=== PATIENT | male | born 1955 | race Caucasian/White ===

== ENCOUNTER 2022-09-15 13:55 | Emergency (ER) | payer MEDICARE, OTHER ==
[2022-09-15 14:30] VITALS: TEMP 98.1
[2022-09-15] MEDS ORDERED: MECLIZINE 12.5 MG TAB PO STA (15:28)
[2022-09-15] MEDS ORDERED: SODIUM CHLORIDE 0.9% 500 ML 500 ML IV STA (15:28)
--- NOTE | 2022-09-15 16:35 | ED ---
Dizziness HPI - General Chief Complaint: Dizziness Stated Complaint: dizziness Time Seen by Provider: 09/15/22 15:22 Source: patient Mode of arrival: ambulatory Limitations: no limitations - History of Present Illness Initial Comments: Patient is a 67-year-old male presenting with chief complaint of dizziness. Patient states that yesterday when he woke up and turned his head the room started spinning. Patient states that today's symptoms have improved but are still there. Patient states that symptoms feel better when he keeps his head still. He admits to some nausea with no vomiting. No chest pain or difficulty breathing. No abdominal pain. No headache, vision or hearing changes, numbness, tingling, weakness. - Related Data Home Medications Medication Instructions Recorded Confirmed Atorvastatin [Lipitor] 40 mg PO HS 09/15/22 09/15/22 Previous Rx's Medication Instructions Recorded Meclizine [Antivert] 25 mg PO BID PRN #20 tab 09/15/22 Allergies Allergy/AdvReac Type Severity Reaction Status Date / Time No Known Allergies Allergy Verified 09/15/22 15:43 Review of Systems ROS Statement: Those systems with pertinent positive or pertinent negative responses have been documented in the HPI. ROS Other: All systems not noted in ROS Statement are negative. Past Medical History Past Medical History: No Reported History History of Any Multi-Drug Resistant Organisms: None Reported Additional Past Surgical History / Comment(s): urethroplasty Smoking Status: Vaper Past Alcohol Use History: None Reported Past Drug Use History: Marijuana General Exam Limitations: no limitations General appearance: alert, in no apparent distress Head exam: Present: atraumatic, normocephalic, normal inspection Eye exam: Present: normal appearance, PERRL, EOMI. Absent: scleral icterus, conjunctival injection, periorbital swelling Pupils: Present: normal accommodation Neck exam: Present: normal inspection Respiratory exam: Present: normal lung sounds bilaterally. Absent: respiratory distress, wheezes, rales, rhonchi, stridor Cardiovascular Exam: Present: regular rate, normal rhythm, normal heart sounds. Absent: systolic murmur, diastolic murmur, rubs, gallop, clicks Neurological exam: Present: alert, oriented X3, CN II-XII intact Psychiatric exam: Present: normal affect, normal mood Skin exam: Present: warm, dry, intact, normal color. Absent: rash Course Vital Signs 0409/15/22 09/15/22 14:26 16:30 17:00 Temperature 98.1 F Pulse Rate 61 61 Pulse Rate [ Standing] Pulse Rate [ Supine] Respiratory 18 18 Rate Blood Pressure 158/77 156/86 Blood Pressure [Right Arm Supine] Blood Pressure [Sitting] O2 Sat by Pulse 96 97 94 L Oximetry 09/15/22 09/15/22 09/15/22 17:30 18:00 18:01 Temperature Pulse Rate 64 65 Pulse Rate [ Standing] Pulse Rate [ 72 70 Supine] Respiratory 17 13 Rate Blood Pressure 141/83 137/81 Blood Pressure 144/86 154/101 [Right Arm Supine] Blood Pressure [Sitting] O2 Sat by Pulse 95 96 Oximetry 09/15/22 18:02 Temperature Pulse Rate Pulse Rate [ 69 Standing] Pulse Rate [ Supine] Respiratory Rate Blood Pressure Blood Pressure [Right Arm Supine] Blood Pressure 137/83 [Sitting] O2 Sat by Pulse Oximetry EKG Findings - EKG Comments: EKG Findings:: Sinus rhythm ventricular rate 63. NJ interval 197. QRS 114. QT 407. QTC 414. No ischemic changes. Medical Decision Making - Medical Decision Making Was pt. sent in by a medical professional or institution (, PA, ELECTRON BEAM WELDER SETTER, urgent care, hospital, or alf...) When possible be specific @ -No Did you speak to anyone other than the patient for history (EMS, parent, family, police, friend...)? What history was obtained from this source @ -No Did you review nursing and triage notes (agree or disagree)? Why? @ -I reviewed and agree with nursing and triage notes Were old charts reviewed (outside hosp., previous admission, EMS record, old EKG, old radiological studies, urgent care reports/EKG's, alf records)? Report findings @ -No old charts were reviewed Differential Diagnosis (chest pain, altered mental status, abdominal pain women, abdominal pain men, vaginal bleeding, weakness, fever, dyspnea, syncope, headache, dizziness, GI bleed, back pain, seizure, CVA, palpatations, mental health, musculoskeletal)? @ -MDM Differential Dizziness: Benign paroxysmal positional Vertigo, Menieres disease, otitis media, acoustic neuroma, vertebrobasilar insufficiency, cerebellar stroke, encephalitis, hypovolemic, arrhythmia, coronary artery syndrome, anemia this is not meant to be an all-inclusive list EKG interpreted by me (3pts min.). @ -As above X-rays interpreted by me (1pt min.). @ -Chest x-ray showed no acute process, COPD changes noted CT interpreted by me (1pt min.). @ -None done U/S interpreted by me (1pt. min.). @ -None done What testing was considered but not performed or refused? (CT, X-rays, U/S, labs)? Why? @ -None What meds were considered but not given or refused? Why? @ -None Did you discuss the management of the patient with other professionals (professionals i.e. DrRosalba, PA, ELECTRON BEAM WELDER SETTER, lab, RT, psych nurse, social media coordinator, color depositing machine tender, teacher, chief security and safety officer, case management specialist)? Give summary @ -No Was smoking cessation discussed for >3mins.? @ -No Was critical care preformed (if so, how long)? @ -No Were there social determinants of health that impacted care today? How? (Homelessness, low income, unemployed, alcoholism, drug addiction, transportation, low edu. Level, literacy, decrease access to med. care, longterm, rehab)? @ -No Was there de-escalation of care discussed even if they declined (Discuss DNR or withdrawal of care, Hospice)? DNR status @ -No What co-morbidities impacted this encounter? (DM, HTN, Smoking, COPD, CAD, Cancer, CVA, ARF, Chemo, Hep., AIDS, mental health diagnosis, sleep apnea, morbid obesity)? @ -None Was patient admitted / discharged? Hospital course, mention meds given and route, prescriptions, significant lab abnormalities, going to OR and other pertinent info. @ -Patient is a 67-year-old male presenting with chief complaint of dizziness. Symptoms started yesterday, dizziness is worse with moving his head and improves when holding still. On physical examination there are no focal neurological deficits. Heart and lungs are clear to auscultation, denies chest pain or difficulty breathing. Patient is given meclizine. Lab work is essentially unremarkable. EKG shows no acute process. Chest x-rays negative. Patient reports some improvement after meclizine. He is educated on these findings and on supportive treatment with BPPV. He is provided with prescription for meclizine. Follow-up with PCP. Report back to ER with any new or worsening symptoms. Discussed return parameters and answered all questions. Patient conveyed verbal understanding and agreed to the plan. I discussed this case in detail with my attending Dr. Mckeon Undiagnosed new problem with uncertain prognosis? @ -No Drug Therapy requiring intensive monitoring for toxicity (Heparin, Nitro, Insulin, Cardizem)? @ -No Were any procedures done? @ -No Diagnosis/symptom? @ -BPPV Acute, or Chronic, or Acute on Chronic? @ -Acute Uncomplicated (without systemic symptoms) or Complicated (systemic symptoms)? @ -Uncomplicated Side effects of treatment? @ -No Exacerbation, Progression, or Severe Exacerbation? @ -No Poses a threat to life or bodily function? How? (Chest pain, [place], [place], pneumonia, PE, COPD, DKA, ARF, appy, cholecystitis, CVA, Diverticulitis, Homicidal, Suicidal, threat to staff... and all critical care pts) @ -No - Lab Data Result diagrams: 09/15/22 16:32 09/15/22 16:32 Lab Results 09/15/22 09/15/22 09/15/22 Range/Units 16:32 16:32 16:32 WBC 8.9 (3.8-10.6) k/uL RBC 5.44 (4.30-5.90) m/uL Hgb 16.7 (13.0-17.5) gm/dL Hct 47.6 (39.0-53.0) % MCV 87.4 (80.0-100.0) fL MCH 30.8 (25.0-35.0) pg MCHC 35.2 (31.0-37.0) g/dL RDW 12.2 (11.5-15.5) % Plt Count 116 L (150-450) k/uL MPV 8.5 Neutrophils % 88 % Lymphocytes % 6 % Monocytes % 4 % Eosinophils % 1 % Basophils % 0 % Neutrophils # 7.8 H (1.3-7.7) k/uL Lymphocytes # 0.5 L (1.0-4.8) k/uL Monocytes # 0.4 (0-1.0) k/uL Eosinophils # 0.1 (0-0.7) k/uL Basophils # 0.0 (0-0.2) k/uL PT 10.4 (9.0-12.0) sec INR 1.0 (<1.2) Sodium 137 (137-145) mmol/L Potassium 4.0 (3.5-5.1) mmol/L Chloride 104 (98-107) mmol/L Carbon Dioxide 24 (22-30) mmol/L Anion Gap 9 mmol/L BUN 16 (9-20) mg/dL Creatinine 0.87 (0.66-1.25) mg/dL Est GFR (CKD-EPI)AfAm >90 (>60 ml/min/1.73 sqM) Est GFR (CKD-EPI)NonAf >90 (>60 ml/min/1.73 sqM) Glucose 104 H (74-99) mg/dL Plasma Lactic Acid Vishal (0.7-2.0) mmol/L Calcium 9.3 (8.4-10.2) mg/dL Total Bilirubin 1.8 H (0.2-1.3) mg/dL AST 29 (17-59) U/L ALT 32 (4-49) U/L Alkaline Phosphatase 64 (38-126) U/L Troponin I (0.000-0.034) ng/mL Total Protein 7.4 (6.3-8.2) g/dL Albumin 4.4 (3.5-5.0) g/dL 09/15/22 09/15/22 Range/Units 16:32 16:32 WBC (3.8-10.6) k/uL RBC (4.30-5.90) m/uL Hgb (13.0-17.5) gm/dL Hct (39.0-53.0) % MCV (80.0-100.0) fL MCH (25.0-35.0) pg MCHC (31.0-37.0) g/dL RDW (11.5-15.5) % Plt Count (150-450) k/uL MPV Neutrophils % % Lymphocytes % % Monocytes % % Eosinophils % % Basophils % % Neutrophils # (1.3-7.7) k/uL Lymphocytes # (1.0-4.8) k/uL Monocytes # (0-1.0) k/uL Eosinophils # (0-0.7) k/uL Basophils # (0-0.2) k/uL PT (9.0-12.0) sec INR (<1.2) Sodium (137-145) mmol/L Potassium (3.5-5.1) mmol/L Chloride (98-107) mmol/L Carbon Dioxide (22-30) mmol/L Anion Gap mmol/L BUN (9-20) mg/dL Creatinine (0.66-1.25) mg/dL Est GFR (CKD-EPI)AfAm (>60 ml/min/1.73 sqM) Est GFR (CKD-EPI)NonAf (>60 ml/min/1.73 sqM) Glucose (74-99) mg/dL Plasma Lactic Acid Vishal 1.3 (0.7-2.0) mmol/L Calcium (8.4-10.2) mg/dL Total Bilirubin (0.2-1.3) mg/dL AST (17-59) U/L ALT (4-49) U/L Alkaline Phosphatase (38-126) U/L Troponin I <0.012 (0.000-0.034) ng/mL Total Protein (6.3-8.2) g/dL Albumin (3.5-5.0) g/dL Disposition Clinical Impression: BPPV (benign paroxysmal positional vertigo) Disposition: HOME SELF-CARE Condition: Good Instructions (If sedation given, give patient instructions): Dizziness (ED) Additional Instructions: Follow-up with PCP. Report back to ER with any new or worsening symptoms. Prescriptions: Meclizine [Antivert] 25 mg PO BID PRN #20 tab PRN Reason: Vertigo Is patient prescribed a controlled substance at d/c from ED?: No Referrals: None,Stated [Primary Care Provider] - 1-2 days Time of Disposition: 18:13
[2022-09-15 16:46] LABS: Basophils % (A) 0 %; Eosinophils # (A) 0.1 k/uL (0-0.7); Eosinophils % (A) 1 %; HCT 47.6 % (39.0-53.0); HGB 16.7 gm/dL (13.0-17.5); Lymphocytes # (A) 0.5 k/uL (1.0-4.8); Lymphocytes % (A) 6 %; MCH 30.8 pg (25.0-35.0); MCHC 35.2 g/dL (31.0-37.0); MCV 87.4 fL (80.0-100.0); Mean Platelet Volume 8.5; Monocytes # (A) 0.4 k/uL (0-1.0); Monocytes % (A) 4 %; Neutrophils # (A) 7.8 k/uL (1.3-7.7); Neutrophils % (A) 88 %; Platelet Count 116 k/uL (150-450); RBC 5.44 m/uL (4.30-5.90); RDW 12.2 % (11.5-15.5); WBC 8.9 k/uL (3.8-10.6)
[2022-09-15 17:03] LABS: Prothrombin Time 10.4 sec (9.0-12.0)
[2022-09-15 17:13] LABS: ALT 32 U/L (4-49); AST 29 U/L (17-59); African American GFR (CKD) >90 (>60 ml/min/1.73 sqM); Albumin 4.4 g/dL (3.5-5.0); Alkaline Phosphatase 64 U/L (38-126); Anion Gap 9 mmol/L; Blood Urea Nitrogen 16 mg/dL (9-20); Calcium 9.3 mg/dL (8.4-10.2); Carbon Dioxide 24 mmol/L (22-30); Chloride 104 mmol/L (98-107); Glucose 104 mg/dL (74-99); Non-African American GFR(CKD) >90 (>60 ml/min/1.73 sqM); Sodium 137 mmol/L (137-145); Total Bilirubin 1.8 mg/dL (0.2-1.3); Total Protein 7.4 g/dL (6.3-8.2)
--- NOTE | 2022-09-15 17:54 | XR ---
EXAMINATION TYPE: XR chest 2V DATE OF EXAM: 09/15/2022 COMPARISON: None INDICATION: Dizziness nausea vomiting TECHNIQUE: Frontal and lateral views of the chest are obtained. FINDINGS: The heart size is normal. The pulmonary vasculature is normal. The lungs are clear. There is a focal eventration of the posterior right diaphragm. Hyperinflation f lattening diaphragms compatible with COPD is present. IMPRESSION: 1. No acute pulmonary process. 2. COPD
[2022-09-15 18:10] VITALS: RESP 13
[2022-09-15 18:42] VITALS: BP 137/83; PULSE 69
== END 2022-09-15 18:52 | disposition home or self-care (01) ==
LOC: EC 13:55
DX: H81.10 Benign paroxysmal vertigo, unspecified ear (principal); J44.9 Chronic obstructive pulmonary disease, unspecified; F17.290 Nicotine dependence, other tobacco product, uncomplicated; F12.90 Cannabis use, unspecified, uncomplicated
CPT/HCPCS: 36415; 71046; 80053; 83605; 84484; 85025; 85610; 93005; 96360; 99285

== ENCOUNTER 2023-03-04 17:58 | Inpatient (IN) | payer MEDICARE, OTHER ==
[2023-03-04] MEDS ORDERED: MORPHINE SULFATE 4 MG/ML SYRINGE IV STA (19:05)
--- NOTE | 2023-03-04 19:09 | ED ---
Abdominal Pain HPI - General Chief Complaint: Abdominal Pain Stated Complaint: abd pain Time Seen by Provider: 03/04/23 18:19 Source: EMS Mode of arrival: EMS Limitations: no limitations - History of Present Illness Initial Comments: This patient is a 67-year-old man who presents evaluation of abdominal pain. He states that it started early this morning and was present in the epigastric area. Over the course the day it has migrated down to the right lower quadrant. He describes it as a constant painful pressure. He has had nausea associated and he did induce vomiting couple of times to see if that would help but it didn't really relieve the symptoms. No hematemesis or coffee-ground material. He did have bowel movement earlier today that he described as normal. No change in urination. No groin or testicle pain. No symptoms into the legs or up to the chest. MD Complaint: abdominal pain -: hour(s) Location: epigastric Radiation: none Migration to: RLQ Severity: moderate Quality: other (Pressure) Consistency: constant Improves With: nothing Worsens With: nothing Associated Symptoms: nausea - Related Data Home Medications Medication Instructions Recorded Confirmed Atorvastatin [Lipitor] 40 mg PO HS 09/15/22 03/04/23 Previous Rx's Medication Instructions Recorded Acetaminophen Tab [Tylenol Tab] 650 mg PO Q4H PRN #30 tablet 03/06/23 Ibuprofen [Motrin] 600 mg PO Q8HR PRN #30 tab 03/06/23 Levofloxacin [Levaquin] 500 mg PO DAILY 10 Days #10 tab 03/06/23 metroNIDAZOLE [Flagyl] 500 mg PO TID 10 Days #30 tab 03/06/23 oxyCODONE HCL [OxyIR] 5 mg PO Q6H PRN 3 Days #12 tab 03/06/23 oxyCODONE HCL [OxyIR] 5 mg PO Q6H PRN 3 Days #8 tab 03/08/23 Apixaban [Eliquis] 0 mg PO DIRECTED 30 Days #74 03/23/23 tablet Allergies Allergy/AdvReac Type Severity Reaction Status Date / Time No Known Allergies Allergy Verified 03/23/23 11:57 Review of Systems ROS Statement: Those systems with pertinent positive or pertinent negative responses have been documented in the HPI. ROS Other: All systems not noted in ROS Statement are negative. Constitutional: Reports: fever Respiratory: Denies: cough, dyspnea Cardiovascular: Denies: chest pain, palpitations, edema Gastrointestinal: Reports: abdominal pain, nausea, vomiting. Denies: diarrhea, constipation, hematemesis, melena, hematochezia Genitourinary: Denies: dysuria, hematuria, testicular pain Musculoskeletal: Denies: back pain Skin: Denies: rash Neurological: Denies: headache, weakness, numbness Past Medical History Past Medical History: No Reported History History of Any Multi-Drug Resistant Organisms: None Reported Additional Past Surgical History / Comment(s): urethroplasty Smoking Status: Vaper Past Alcohol Use History: None Reported Past Drug Use History: Marijuana General Exam Limitations: no limitations General appearance: alert, in no apparent distress Head exam: Present: atraumatic, normocephalic Eye exam: Present: normal appearance. Absent: scleral icterus, conjunctival injection ENT exam: Present: mucous membranes dry Neck exam: Present: normal inspection Respiratory exam: Present: normal lung sounds bilaterally. Absent: respiratory distress, wheezes, rales, rhonchi, stridor, accessory muscle use Cardiovascular Exam: Present: regular rate, normal rhythm, normal heart sounds. Absent: systolic murmur, diastolic murmur, rubs, gallop GI/Abdominal exam: Present: soft, tenderness (Lower quadrant), guarding, hypoactive bowel sounds. Absent: distended, rebound, rigid, mass, pulsatile mass, hernia Extremities exam: Present: normal inspection, normal capillary refill. Absent: pedal edema, calf tenderness Back exam: Present: normal inspection. Absent: CVA tenderness (R), CVA tenderness (L) Neurological exam: Present: alert Skin exam: Present: warm, dry, intact, normal color. Absent: rash Course Vital Signs 03/04/23 03/04/23 03/04/23 18:14 19:34 20:35 Temperature 99.9 F H 99.6 F Pulse Rate 81 91 87 Respiratory 18 18 16 Rate Blood Pressure 180/93 177/94 163/98 O2 Sat by Pulse 95 95 94 L Oximetry 03/04/23 20:57 Temperature Pulse Rate Respiratory Rate Blood Pressure 166/93 O2 Sat by Pulse Oximetry Medical Decision Making - Medical Decision Making The patient had computed tomography scan of the abdomen and pelvis which I int erpreted as showing probable acute cholecystitis. No free air or obstruction. Was pt. sent in by a medical professional or institution (Dr., PA, FIELD SERVICE REP, urgent care, hospital, or [facility]...) When possible be specific @ -[No] Did you speak to anyone other than the patient for history (EMS, parent, family, police, friend...)? What history was obtained from this source @ -[No] Did you review nursing and triage notes (agree or disagree)? Why? @ -[I reviewed and agree with nursing and triage notes] Were old charts reviewed (outside hosp., previous admission, EMS record, old EKG, old radiological studies, urgent care reports/EKG's, [facility] records)? Report findings @ -[No old charts were reviewed] Differential Diagnosis (chest pain, altered mental status, abdominal pain women, abdominal pain men, vaginal bleeding, weakness, fever, dyspnea, syncope, headache, dizziness, GI bleed, back pain, seizure, CVA, palpatations, mental health, musculoskeletal)? @ -[Differential Abdominal Pain Men: Appendicitis, cholecystitis, diverticulosis, ischemic bowel, pancreatitis, hepatitis, UTI, gastroenteritis, AAA, incarcerated hernia, bowel obstruction, constipation, inflammatory bowel, hepatitis, peptic ulcer disease, splenic infarction, perforated viscus, testicular torsion, this is not meant to be an all-inclusive list EKG interpreted by me (3pts min.). @ -[ X-rays interpreted by me (1pt min.). @ -[None done] CT interpreted by me (1pt min.). @ -[I interpreted as above U/S interpreted by me (1pt. min.). @ -[None done] What testing was considered but not performed or refused? (CT, X-rays, U/S, labs)? Why? @ -[None] What meds were considered but not given or refused? Why? @ -[None] Did you discuss the management of the patient with other professionals (professionals i.e. REED Montejo, FIELD SERVICE REP, lab, RT, psych nurse, director of social services, sales contract administrator, teacher, parachute/combatant diver officer, case checker)? Give summary @ -[Case discussed with the on-call surgeon who will admit the patient, probably to take to the OR in the morning Was smoking cessation discussed for >3mins.? @ -[No] Was critical care preformed (if so, how long)? @ -[No] Were there social determinants of health that impacted care today? How? (Homelessness, low income, unemployed, alcoholism, drug addiction, transportation, low edu. Level, literacy, decrease access to med. care, fdc, rehab)? @ -[No] Was there de-escalation of care discussed even if they declined (Discuss DNR or withdrawal of care, Hospice)? DNR status @ -[No] What co-morbidities impacted this encounter? (DM, HTN, Smoking, COPD, CAD, Cancer, CVA, ARF, Chemo, Hep., AIDS, mental health diagnosis, sleep apnea, morbid obesity)? @ -[None] Was patient admitted / discharged? Hospital course, mention meds given and route, prescriptions, significant lab abnormalities, going to OR and other pertinent info. @ -[The patient is admitted. Patient is nothing by mouth and antibiotics are started with anticipated surgery. Patient to have symptomatic control with IV medication as well and IV fluid while nothing by mouth Undiagnosed new problem with uncertain prognosis? @ -[No] Drug Therapy requiring intensive monitoring for toxicity (Heparin, Nitro, Insulin, Cardizem)? @ -[No] Were any procedures done? @ -[No] Diagnosis/symptom? @ -[Acute abdominal pain Acute cholecystitis Acute, or Chronic, or Acute on Chronic? @ -[Acute Uncomplicated (without systemic symptoms) or Complicated (systemic symptoms)? @ -[Uncomplicated Side effects of treatment? @ -[No] Exacerbation, Progression, or Severe Exacerbation? @ -[No] Poses a threat to life or bodily function? How? (Chest pain, [place], [place], pneumonia, PE, COPD, DKA, ARF, appy, cholecystitis, CVA, Diverticulitis, Homicidal, S uicidal, threat to staff... and all critical care pts) @ -[Yes, untreated cholecystitis may progress to worsening infection/sepsis - Lab Data Result diagrams: 03/08/23 07:14 03/08/23 07:14 Lab Results 03/04/23 03/04/23 03/04/23 Range/Units 19:10 19:10 19:10 WBC 18.8 H (3.8-10.6) k/uL RBC 5.28 (4.30-5.90) m/uL Hgb 16.4 (13.0-17.5) gm/dL Hct 47.4 (39.0-53.0) % MCV 89.7 (80.0-100.0) fL MCH 31.0 (25.0-35.0) pg MCHC 34.6 (31.0-37.0) g/dL RDW 12.1 (11.5-15.5) % Plt Count 129 L (150-450) k/uL MPV 8.7 Neutrophils % 93 % Lymphocytes % 2 % Monocytes % 5 % Eosinophils % 1 % Basophils % 0 % Neutrophils # 17.5 H (1.3-7.7) k/uL Lymphocytes # 0.3 L (1.0-4.8) k/uL Monocytes # 0.9 (0-1.0) k/uL Eosinophils # 0.1 (0-0.7) k/uL Basophils # 0.0 (0-0.2) k/uL Sodium 136 L (137-145) mmol/L Potassium 3.9 (3.5-5.1) mmol/L Chloride 100 (98-107) mmol/L Carbon Dioxide 21 L (22-30) mmol/L Anion Gap 15 mmol/L BUN 18 (9-20) mg/dL Creatinine 0.73 (0.66-1.25) mg/dL Est GFR (CKD-EPI)AfAm >90 (>60 ml/min/1.73 sqM) Est GFR (CKD-EPI)NonAf >90 (>60 ml/min/1.73 sqM) Glucose 150 H (74-99) mg/dL Calcium 9.1 (8.4-10.2) mg/dL Total Bilirubin 1.9 H (0.2-1.3) mg/dL AST 35 (17-59) U/L ALT 34 (4-49) U/L Alkaline Phosphatase 50 (38-126) U/L C-Reactive Protein 3.3 H (<1.0) mg/dL Total Protein 7.0 (6.3-8.2) g/dL Albumin 4.2 (3.5-5.0) g/dL Amylase 40 (30-110) U/L Lipase 80 (23-300) U/L Urine Color Yellow Urine Appearance Cloudy (Clear) Urine pH 5.5 (5.0-8.0) Ur Specific Gomer 1.024 (1.001-1.035) Urine Protein Trace H (Negative) Urine Glucose (UA) Negative (Negative) Urine Ketones Negative (Negative) Urine Blood Trace H (Negative) Urine Nitrite Positive (Negative) Urine Bilirubin Negative (Negative) Urine Urobilinogen <2.0 (<2.0) mg/dL Ur Leukocyte Esterase Large H (Negative) Urine RBC 1 (0-5) /hpf Urine WBC 127 H (0-5) /hpf Urine Bacteria Few H (None) /hpf Urine Mucus Moderate H (None) /hpf Disposition Clinical Impression: Cholecystitis Disposition: HOME SELF-CARE Condition: Fair Is patient prescribed a controlled substance at d/c from ED?: No
--- NOTE | 2023-03-04 19:28 | CT ---
EXAMINATION TYPE: CT abdomen pelvis wo con CT DLP: 646.5 mGycm, Automated exposure control for dose reduction was used. DATE OF EXAM: 03/04/2023 7:21 PM COMPARISON: None CLINICAL INDICATION:Male, 67 years old with history of abdominal pain; RLQ abdominal pain since 2am, Pt said it started out as epigastric pain, Pt also c/o N/V. TECHNIQUE: Standard CT of the abdomen and pelvis without IV or oral contrast. Lack of IV or oral co ntrast limits evaluation of solid and hollow organ viscera. Coronal and sagittal reformats were perfo rmed. FINDINGS: LOWER CHEST: The visualized lung bases are clear. Fat filled right Bochdalek hernia. Mild coronary ar kourtney calcifications. ABDOMEN LIVER: Unremarkable GALLBLADDER AND BILE DUCTS: Distended gallbladder with a 1.1 cm calculus in the neck and surrounding fat stranding with wall thickening identified. No biliary duct dilatation. PANCREAS: Unremarkable. SPLEEN: Unremarkable. ADRENAL GLANDS: Unremarkable. KIDNEYS AND URETERS: No evidence of hydronephrosis or renal calculus. PELVIS BLADDER: Unremarkable REPRODUCTIVE: Unremarkable. ABDOMEN & PELVIS STOMACH AND BOWEL: Diverticulum involving the second/third portion of the duodenum. The appendix is w ithin normal limits. Distal colonic diverticulosis without evidence for acute diverticulitis. No evid ence of bowel obstruction. PERITONEUM: No evidence of pneumoperitoneum or free fluid. VASCULATURE: Mild atherosclerotic calcifications are present throughout the abdominal aorta and its b ranches. No evidence of aortic aneurysm. MUSCULOSKELETAL: No acute osseous abnormalities. Mild disc degeneration changes are present throughou t the thoracolumbar spine. LYMPH NODES: No gross evidence for lymphadenopathy. SOFT TISSUE/ABDOMINAL WALL: Unremarkable IMPRESSION: 1. Findings most consistent with acute cholecystitis with a 1.1 cm gallstone within the gallbladder neck and surrounding inflammatory changes with wall thickening. 2. Colonic diverticulosis without evidence for acute diverticulitis.
[2023-03-04 19:36] LABS: Basophils % (A) 0 %; Eosinophils # (A) 0.1 k/uL (0-0.7); Eosinophils % (A) 1 %; HCT 47.4 % (39.0-53.0); HGB 16.4 gm/dL (13.0-17.5); Lymphocytes # (A) 0.3 k/uL (1.0-4.8); Lymphocytes % (A) 2 %; MCHC 34.6 g/dL (31.0-37.0); MCV 89.7 fL (80.0-100.0); Mean Platelet Volume 8.7; Monocytes # (A) 0.9 k/uL (0-1.0); Monocytes % (A) 5 %; Neutrophils # (A) 17.5 k/uL (1.3-7.7); Neutrophils % (A) 93 %; Platelet Count 129 k/uL (150-450); RBC 5.28 m/uL (4.30-5.90); RDW 12.1 % (11.5-15.5); WBC 18.8 k/uL (3.8-10.6)
[2023-03-04 19:37] LABS: ALT 34 U/L (4-49); AST 35 U/L (17-59); African American GFR (CKD) >90 (>60 ml/min/1.73 sqM); Albumin 4.2 g/dL (3.5-5.0); Alkaline Phosphatase 50 U/L (38-126); Amylase 40 U/L (30-110); Anion Gap 15 mmol/L; Blood Urea Nitrogen 18 mg/dL (9-20); C Reactive Protein 3.3 mg/dL (<1.0); Calcium 9.1 mg/dL (8.4-10.2); Carbon Dioxide 21 mmol/L (22-30); Chloride 100 mmol/L (98-107); Glucose 150 mg/dL (74-99); Lipase 80 U/L (23-300); Non-African American GFR(CKD) >90 (>60 ml/min/1.73 sqM); Potassium 3.9 mmol/L (3.5-5.1); Sodium 136 mmol/L (137-145); Total Bilirubin 1.9 mg/dL (0.2-1.3)
[2023-03-04 19:39] LABS: Appearance,Urine Cloudy (Clear); Bacteria,Urine Few /hpf; Bilirubin,Urine Negative (Negative); Blood,Urine Trace (Negative); Color,Urine Yellow; Glucose,Urine (UA) Negative (Negative); Ketones,Urine Negative (Negative); Leukocyte Esterase,Urine Large (Negative); Mucus,Urine Moderate /hpf; Nitrite,Urine Positive (Negative); PH, Urine 5.5 (5.0-8.0); Protein,Urine Trace (Negative); RBC,Urine 1 /hpf (0-5); Specific Gravity,Urine 1.024 (1.001-1.035); Urobilinogen,Urine <2.0 mg/dL (<2.0); WBC,Urine 127 /hpf (0-5)
[2023-03-04] MEDS ORDERED: SODIUM CHLORIDE 0.9% 1,000 ML IV ONE (19:40)
[2023-03-04] MEDS ORDERED: PIPERACILLIN-TAZOBACTAM 3.375 GM in SODIUM CHLORIDE 0.9% 100 ML IVPB STA (19:40)
[2023-03-04] MEDS ORDERED: ONDANSETRON 4 MG/2 ML VIAL IVP PRN (19:46)
[2023-03-04] MEDS ORDERED: ACETAMINOPHEN TAB 325 MG TAB PO PRN (19:46)
[2023-03-04] MEDS ORDERED: NALOXONE 0.4 MG/ML 1 ML VIAL IV PRN (19:46)
[2023-03-04] MEDS: SODIUM CHLORIDE 0.9% 1,000 ML IV SCH (20:17)
[2023-03-04] MEDS: FAMOTIDINE 20 MG/2 ML VIAL IV SCH (20:18)
[2023-03-04] MEDS ORDERED: hydrALAZINE HCL 20 MG/ML 1 ML VIAL IVP STA (22:55)
[2023-03-04] MEDS ORDERED: hydrALAZINE HCL 20 MG/ML 1 ML VIAL IVP PRN (22:56)
[2023-03-04] MEDS: MORPHINE SULFATE 4 MG/ML SYRINGE IV PRN (23:57)
[2023-03-05] MEDS: MORPHINE SULFATE 4 MG/ML SYRINGE IV PRN ×2 (03:38→08:22)
[2023-03-05] MEDS: PIPERACILLIN-TAZOBACTAM 3.375 GM in SODIUM CHLORIDE 0.9% 100 ML IVPB SCH ×3 (03:38→20:25)
[2023-03-05] MEDS: SODIUM CHLORIDE 0.9% 1,000 ML IV SCH ×3 (03:44→13:48)
[2023-03-05] MEDS: FAMOTIDINE 20 MG/2 ML VIAL IV SCH ×2 (08:17→21:42)
--- NOTE | 2023-03-05 10:44 | P.GSHP ---
History of Present Illness H&P Date: 03/05/23 CHIEF COMPLAINT: Abdominal pain HISTORY OF PRESENT ILLNESS: This is a 67-year-old male who presented to the hospital with complaints of epigastric abdominal pain that started around 2 AM Thursday morning. He reports the pain then moved to the right upper quadrant. He has been having nausea. He tried to self induce vomiting for relief. Patient continued to have the abdominal pain and presented to the ER for evaluation. CAT scan of the abdomen reports findings consistent with acute cholecystitis with gallstone and surrounding inflammatory changes with wall thickening.. Patient reports having a fever of 102 in the ambulance. Patient admitted hospital with acute cholecystitis started on antibiotics. PAST MEDICAL HISTORY: See below PAST SURGICAL HISTORY: urethroplasty MEDICATIONS: See below ALLERGIES: See below SOCIAL HISTORY: No illicit drug use. REVIEW OF SYSTEMS: CONSTITUTIONAL: Denies fever or chills. HEENT: Denies blurred vision, vision changes, or eye pain. Denies hemoptysis CARDIOVASCULAR: Denies chest pain or pressure. RESPIRATORY: No shortness of breath. GASTROINTESTINAL: See HPI for pertinent findings HEMATOLOGIC: Denies bleeding disorders. GENITOURINARY: Denies any blood in urine or increased urinary frequency. SKIN: Denies pruitis. Denies rash. PHYSICAL EXAM: VITAL SIGNS: Reviewed GENERAL: Well-developed in no acute distress. HEENT: No sclera icterus. ABDOMEN: Soft. Nondistended. Tenderness with the patient of the right upper quadrant NEUROLOGIC: Alert and oriented. Cranial nerves II through XII grossly intact. LABORATORY DATA: WBC 18.8 Hgb 16.4 platelets 129 Sodium 136 potassium 3.9 creatinine 0.73 Total bilirubin 1.9 AST 35 ALT 34 CRP 3.3 Lipase 80 IMAGING: Computed tomography scan abdomen and pelvis findings most consistent with acute cholecystitis with a 1.1 cm gallstone within the gallbladder neck and surrounding inflammatory changes with wall thickening. Colonic diverticulosis without evidence of acute diverticulitis. ASSESSMENT: 1. Acute cholecystitis. Computed tomography scan showing evidence of acute cholecystitis with gallstone within the gallbladder neck inflammatory changes and wall thickening PLAN: -Patient scheduled for Laparoscopic cholecystectomy today with Dr. Mccann -Keep patient nothing by mouth -Continue IV antibiotics -Continue supportive care -Medicines service consulted for medical management Physician Business Insurance Agent note has been reviewed by physician. Signing provider agrees with the documented findings, assessment, and plan of care. Past Medical History Past Medical History: Hyperlipidemia History of Any Multi-Drug Resistant Organisms: None Reported Additional Past Surgical History / Comment(s): urethroplasty Additional Past Anesthesia/Blood Transfusion Reaction / Comment(s): no transfusion history Past Psychological History: No Psychological Hx Reported Smoking Status: Vaper Past Alcohol Use History: None Reported Past Drug Use History: Marijuana Medications and Allergies Home Medications Medication Instructions Recorded Confirmed Type Atorvastatin [Lipitor] 40 mg PO HS 09/15/22 03/04/23 History Allergies Allergy/AdvReac Type Severity Reaction Status Date / Time No Known Allergies Allergy Verified 03/04/23 18:18 Surgical - Exam Vital Signs Temp Pulse Resp BP Pulse Ox 99.9 F H 81 18 180/93 95 03/04/23 18:14 03/04/23 18:14 03/04/23 18:14 03/04/23 18:14 03/04/23 18:14 Results - Labs 03/04/23 19:10 03/04/23 19:10 Abnormal Lab Results - Last 24 Hours (Table) 03/04/23 03/04/23 03/04/23 Range/Units 19:10 19:10 19:10 WBC 18.8 H (3.8-10.6) k/uL Plt Count 129 L (150-450) k/uL Neutrophils # 17.5 H (1.3-7.7) k/uL Lymphocytes # 0.3 L (1.0-4.8) k/uL Sodium 136 L (137-145) mmol/L Carbon Dioxide 21 L (22-30) mmol/L Glucose 150 H (74-99) mg/dL Total Bilirubin 1.9 H (0.2-1.3) mg/dL C-Reactive Protein 3.3 H (<1.0) mg/dL Urine Protein Trace H (Negative) Urine Blood Trace H (Negative) Ur Leukocyte Esterase Large H (Negative) Urine WBC 127 H (0-5) /hpf Urine Bacteria Few H (None) /hpf Urine Mucus Moderate H (None) /hpf Diabetes panel 03/04/23 Range/Units 19:10 Sodium 136 L (137-145) mmol/L Potassium 3.9 (3.5-5.1) mmol/L Chloride 100 (98-107) mmol/L Carbon Dioxide 21 L (22-30) mmol/L BUN 18 (9-20) mg/dL Creatinine 0.73 (0.66-1.25) mg/dL Glucose 150 H (74-99) mg/dL Calcium 9.1 (8.4-10.2) mg/dL AST 35 (17-59) U/L ALT 34 (4-49) U/L Alkaline Phosphatase 50 (38-126) U/L Total Protein 7.0 (6.3-8.2) g/dL Albumin 4.2 (3.5-5.0) g/dL Calcium panel 03/04/23 Range/Units 19:10 Calcium 9.1 (8.4-10.2) mg/dL Albumin 4.2 (3.5-5.0) g/dL Pituitary panel 03/04/23 Range/Units 19:10 Sodium 136 L (137-145) mmol/L Potassium 3.9 (3.5-5.1) mmol/L Chloride 100 (98-107) mmol/L Carbon Dioxide 21 L (22-30) mmol/L BUN 18 (9-20) mg/dL Creatinine 0.73 (0.66-1.25) mg/dL Glucose 150 H (74-99) mg/dL Calcium 9.1 (8.4-10.2) mg/dL Adrenal panel 03/04/23 Range/Units 19:10 Sodium 136 L (137-145) mmol/L Potassium 3.9 (3.5-5.1) mmol/L Chloride 100 (98-107) mmol/L Carbon Dioxide 21 L (22-30) mmol/L BUN 18 (9-20) mg/dL Creatinine 0.73 (0.66-1.25) mg/dL Glucose 150 H (74-99) mg/dL Calcium 9.1 (8.4-10.2) mg/dL Total Bilirubin 1.9 H (0.2-1.3) mg/dL AST 35 (17-59) U/L ALT 34 (4-49) U/L Alkaline Phosphatase 50 (38-126) U/L Total Protein 7.0 (6.3-8.2) g/dL Albumin 4.2 (3.5-5.0) g/dL
[2023-03-05] MEDS ORDERED: LACTATED RINGERS 1,000 ML IV ONE ×2 (11:09→12:52)
[2023-03-05] MEDS ORDERED: LIDOCAINE 1% (10MG/ML) FOR IV START INTRADERMA ONE (11:23)
[2023-03-05] MEDS ORDERED: ONDANSETRON 4 MG/2 ML VIAL IVP ONE (11:24)
[2023-03-05] MEDS ORDERED: DEXAMETHASONE SOD PHOSPHATE 4 MG/ML 1 ML VIAL IVP ONE (11:24)
[2023-03-05] MEDS ORDERED: HEPARIN SODIUM,PORCINE/PF 5,000 UNIT/0.5 ML SYRINGE SQ ONE (11:26)
[2023-03-05] MEDS ORDERED: HEPARIN SODIUM,PORCINE 5,000 UNIT/ML 1 ML VIAL SQ ONE (11:27)
[2023-03-05] MEDS ORDERED: LIDOCAINE 1% INJ 10MG/ML (20 ML MDV) ONE (11:41)
[2023-03-05] MEDS ORDERED: NEOSTIGMINE 1 MG/ML 10 ML VIAL ONE (11:41)
[2023-03-05] MEDS ORDERED: ePHEDrine 50 MG/ML 1 ML VIAL ONE (11:41)
[2023-03-05] MEDS ORDERED: GLYCOPYRROLATE 0.2 MG/ML 2 ML VIAL ONE (11:41)
[2023-03-05] MEDS ORDERED: HYDROmorphone (PF) 1 MG/ML ONE (11:41)
[2023-03-05] MEDS ORDERED: PHENYLEPHRINE-0.9% NACL SYG 1,000 MCG/10 ML SYRINGE ONE (11:41)
[2023-03-05] MEDS ORDERED: ROCURONIUM 10 MG/ML (5 ML VIAL) IV ONE (11:41)
[2023-03-05] MEDS ORDERED: PROPOFOL 10 MG/ML 20 ML VIAL IV ONE (11:41)
[2023-03-05] MEDS ORDERED: SUCCINYLCHOLINE CHLORIDE 200 MG/10 ML VIAL IV ONE (11:41)
[2023-03-05] MEDS ORDERED: MIDAZOLAM 2 MG/2 ML VIAL ONE (11:41)
[2023-03-05] MEDS ORDERED: fentaNYL (PF) 50 MCG/ML 2 ML AMP ONE (11:41)
[2023-03-05] MEDS ORDERED: BUPIVACAIN-EPI 0.25%-1:200,000 30 ML VIAL SQ ONE (11:59)
--- NOTE | 2023-03-05 12:51 | P.OP ---
Date of Procedure: 03/05/23 Preoperative Diagnosis: Cholecystitis Postoperative Diagnosis: Acute gangrenous cholecystitis Procedure(s) Performed: Laparoscopic cholecystectomy Anesthesia: IBRAHIMA Surgeon: Cortes Mccann Estimated Blood Loss (ml): 25 Pathology: other (Gallbladder) Condition: stable Disposition: PACU Description of Procedure: The patient was placed on the operating table. The patient received a general endotracheal tube anesthesia. The patients abdomen was prepped and draped in the usual sterile fashion. Through an infraumbilical stab incision, the fascia of the anterior abdominal wall was grasped with a pair of Kochers and then the Veress needle was placed in the peritoneal cavity. Position of the Veress needle was confirmed with positive drop test. The abdomen was then insufflated. After adequate insufflation, the 10 mm trocar was placed in the peritoneal cavity. Following this the laparoscope was placed in the peritoneal cavity. The patient was placed in the head-up, right side up position and then a 5 mm trocar was placed in the right lateral and right subcostal position under direct visualization. A 8 mm trocar was placed in the epigastric position. The gallbladder was grasped in the fundus and infundibulum. Traction on the gallbladder was placed in the lateral and the cephalad positions. The triangle of Calot was visualized.. The cystic duct was bluntly dissected until the union of the cystic duct and common bile duct was seen. A critical view of safety was achieved. The cystic duct was then divided and sealed with the Harmonic scissors. A PDS Endoloop was then placed throughout the cystic duct stump. The cystic artery divided and sealed with the Harmonic scissors. The gallbladder was then removed from the liver bed using Harmonic scissors. The gallbladder was then extracted through the epigastric port site. Operative field was checked for any bleeding spots and Harmonic scissors was used to coagulate the liver bed. A ALEJO drain was placed in the gallbladder fossa and brought out through the right lateral trocar site. The abdomen was irrigated. The trocars were removed. The skin was closed using interrupted 3-0 Vicryl suture. Dermabond dressing were applied. The patient tolerated the procedure well.
[2023-03-05] MEDS ORDERED: NALOXONE 0.4 MG/ML 1 ML VIAL IV PRN (12:52)
[2023-03-05] MEDS ORDERED: HYDROmorphone 0.5 MG/0.5 ML SYRINGE IVP PRN (12:52)
[2023-03-05] MEDS ORDERED: ONDANSETRON 4 MG/2 ML VIAL IVP PRN (12:52)
[2023-03-05] MEDS ORDERED: HYDROmorphone 1 MG/ML 1 ML SYRINGE IVP PRN (12:52)
--- NOTE | 2023-03-05 12:57 | P.CONS ---
History of Present Illness - Reason for Consult Consult date: 03/05/23 Medical management hypertension Requesting physician: Cortes Mccann - Chief Complaint Abdominal pain - History of Present Illness This is a 67-year-old gentleman with past medical history significant for obesity, hyperlipidemia, vaper, marijuana use, he ambulated medical issues presented to ER with epigastric abdominal pain radiating to right upper quadrant since yesterday morning accompanied by cold sweats, nausea. Abdomin/pelvis CT reported findings most consistent with acute cholecystitis with a 1.1 cm gallstone within the gallbladder neck and surrounding inflammatory changes with wall thickening, colonic diverticulosis without evidence for acute diverticuliti s. Patient is hypertensive with IV fluids running at 130 mL's an hour which have been decreased. Afebrile, T-max 99.9, WBC 18.8. CRP 3.3. Hemoglobin 16.4, platelets 129. Electrolytes, renal function stable. T bili 1.9. UA reporting moderate mucus, 127 WBCs, large leukocytes, positive nitrates. Maintained on Zosyn. Review of Systems ROS Statement: Those systems with pertinent positive or pertinent negative responses have been documented in the HPI. ROS Other: All systems not noted in ROS Statement are negative. Past Medical History Past Medical History: Hyperlipidemia History of Any Multi-Drug Resistant Organisms: None Reported Additional Past Surgical History / Comment(s): urethroplasty Additional Past Anesthesia/Blood Transfusion Reaction / Comm: no transfusion history Past Psychological History: No Psychological Hx Reported Smoking Status: Vaper Past Alcohol Use History: None Reported Past Drug Use History: Marijuana Medications and Allergies Home Medications Medication Instructions Recorded Confirmed Type Atorvastatin [Lipitor] 40 mg PO HS 09/15/22 03/04/23 History Allergies Allergy/AdvReac Type Severity Reaction Status Date / Time No Known Allergies Allergy Verified 03/05/23 11:29 Physical Exam Vitals: Vital Signs Temp Pulse Pulse Resp BP BP Pulse Ox 03/05/23 11:10 99.1 F 98 18 141/80 93 L 03/05/23 08:00 98.4 F 94 18 152/82 91 L 03/05/23 01:28 99.5 F 83 19 152/81 94 L 03/04/23 21:50 173/84 03/04/23 21:16 98.8 F 91 19 194/99 96 03/04/23 20:57 166/93 03/04/23 20:35 99.6 F 87 16 163/98 94 L 03/04/23 19:34 91 18 177/94 95 03/04/23 18:14 99.9 F H 81 18 180/93 95 Intake and Output 03/04/23 03/05/23 03/05/23 22:59 06:59 14:59 Intake Total 850 Output Total 275 Balance 575 Intake: IV 850 Output: Urine 250 Estimated Blood Loss 25 Other: Voiding Method Toilet # Voids 4 1 Weight 81.647 kg 81.647 kg PHYSICAL EXAM: VITAL SIGNS: [As above] GENERAL: Sitting up in bed, no acute distress HEENT: Normocephalic,Conjunctivae normal. eyes normal. NECK: Supple, No JVD. No thyroid enlargement. No LNs CARDIOVASCULAR: S1, S2 regular. No murmur RESPIRATION: Unlabored, equal air entry.Breath sounds diminished in the bases. No rhonchi or crackles. No bronchial breathing. ABDOMEN: Soft, right upper quadrant ,epigastric tenderness. No guarding. no masses palpable. No ascites, No hepatosplenomegaly.Bowel sounds heard. LEGS: No edema. no swelling PSYCHIATRY: Alert and oriented X3, mood and affect normal. NERVOUS SYSTEM: Cranial N 2-12 grossly normal. No focal deficits. Strength and sensation grossly intact. Skin: Warm and dry, no rash. Results CBC & Chem 7: 03/04/23 19:10 03/04/23 19:10 Labs: Abnormal Lab Results - Last 24 Hours (Table) 03/04/23 03/04/23 03/04/23 Range/Units 19:10 19:10 19:10 WBC 18.8 H (3.8-10.6) k/uL Plt Count 129 L (150-450) k/uL Neutrophils # 17.5 H (1.3-7.7) k/uL Lymphocytes # 0.3 L (1.0-4.8) k/uL Sodium 136 L (137-145) mmol/L Carbon Dioxide 21 L (22-30) mmol/L Glucose 150 H (74-99) mg/dL Total Bilirubin 1.9 H (0.2-1.3) mg/dL C-Reactive Protein 3.3 H (<1.0) mg/dL Urine Protein Trace H (Negative) Urine Blood Trace H (Negative) Ur Leukocyte Esterase Large H (Negative) Urine WBC 127 H (0-5) /hpf Urine Bacteria Few H (None) /hpf Urine Mucus Moderate H (None) /hpf Assessment and Plan Assessment: Acute cholecystitis Hypertension Acute UTI Obesity, BMI 28 Vapes, marijuana use. Plan: Continue on current medication regime ,monitoring and symptomatic treatment. Hydralazine ordered for hypertension. Maintain IV fluid hydration, IV antibiotics. Pain management. NPO for upcoming OR. DVT prophylaxis with Lovenox in place. GI prophylaxis with Pepcid. The impression and plan of care has been dictated as directed. : I performed a history and examination of this patient, discussed the same with the dictator. I agree with the dictator's note ,documented as a scribe. Any additional findings or plans will be noted.
[2023-03-05] MEDS: ACETAMINOPHEN TAB 325 MG TAB PO PRN (20:24)
[2023-03-06] MEDS: SODIUM CHLORIDE 0.9% 1,000 ML IV SCH ×3 (03:32→19:31)
[2023-03-06] MEDS: PIPERACILLIN-TAZOBACTAM 3.375 GM in SODIUM CHLORIDE 0.9% 100 ML IVPB SCH ×3 (03:42→19:48)
[2023-03-06] MEDS: ACETAMINOPHEN TAB 325 MG TAB PO PRN (06:57)
[2023-03-06] MEDS ORDERED: HYDROcodone/APAP 5-325MG 1 EACH TAB PO PRN (08:03)
[2023-03-06] MEDS: FAMOTIDINE 20 MG/2 ML VIAL IV SCH (08:13)
[2023-03-06] MEDS: ENOXAPARIN 40 MG/0.4 ML SYRINGE SQ SCH (08:13)
[2023-03-06 09:41] LABS: African American GFR (CKD) >90 (>60 ml/min/1.73 sqM); Anion Gap 7 mmol/L; Blood Urea Nitrogen 15 mg/dL (9-20); Calcium 8.2 mg/dL (8.4-10.2); Carbon Dioxide 25 mmol/L (22-30); Chloride 104 mmol/L (98-107); Glucose 156 mg/dL (74-99); Non-African American GFR(CKD) >90 (>60 ml/min/1.73 sqM); Potassium 3.6 mmol/L (3.5-5.1); Sodium 136 mmol/L (137-145)
[2023-03-06 09:52] LABS: Basophils % (A) 0 %; Eosinophils % (A) 0 %; HCT 41.6 % (39.0-53.0); HGB 13.9 gm/dL (13.0-17.5); Lymphocytes # (A) 0.4 k/uL (1.0-4.8); Lymphocytes % (A) 4 %; MCH 31.1 pg (25.0-35.0); MCHC 33.4 g/dL (31.0-37.0); MCV 93.3 fL (80.0-100.0); Mean Platelet Volume 7.9; Monocytes # (A) 0.4 k/uL (0-1.0); Monocytes % (A) 4 %; Neutrophils # (A) 9.5 k/uL (1.3-7.7); Neutrophils % (A) 91 %; Platelet Count 128 k/uL (150-450); RBC 4.46 m/uL (4.30-5.90); RDW 12.2 % (11.5-15.5); WBC 10.5 k/uL (3.8-10.6)
[2023-03-06] MEDS: KETOROLAC 15 MG/ML 1 ML VIAL IVP SCH ×3 (10:51→22:13)
--- NOTE | 2023-03-06 13:08 | P.PN ---
Subjective Progress Note Date: 03/06/23 CHIEF COMPLAINT: Acute gangrenous cholecystitis HISTORY OF PRESENT ILLNESS: Patient is postop day #1 status post laparoscopic cholecystectomy. Does report abdominal pain. He is having flatus. Decreased appetite. Denies any nausea or vomiting. He has been ambulating to the bathroom and back. ALEJO drain with a total of 80 ML serosanguineous output through the night. Afebrile. WBC 10.5 Hgb 13.9 platelets 120 PHYSICAL EXAM: VITAL SIGNS: Reviewed. GENERAL: Well-developed in no acute distress. ABDOMEN: Soft. Distended. Tenderness at incision sites. Incision sites clean dry and intact. ALEJO drain on the right with serosanguineous output NEUROLOGIC: Alert and oriented. Cranial nerves II through XII grossly intact. ASSESSMENT: 1. Acute gangrenous cholecystitis status post laparoscopic cholecystectomy PLAN: -IV Toradol and [place] added for pain -Encourage patient to ambulate -Encourage patient to use incentive spirometer -Continue antibiotics -Possible discharge tomorrow -ALEJO drain to be removed prior to discharge Physician Placement Specialist note has been reviewed by physician. Signing provider agrees with the documented findings, assessment, and plan of care. Objective - Vital Signs Vital signs: Vital Signs Temp 97.8 F 03/06/23 08:00 Pulse 84 03/06/23 08:00 Resp 16 03/06/23 08:00 BP 134/83 03/06/23 08:00 Pulse Ox 93 L 03/06/23 08:00 FiO2 Intake & Output 03/05/23 03/06/23 03/06/23 18:59 06:59 18:59 Intake Total 950 Output Total 335 635 Balance 615 -635 Intake: IV 950 Output: Drainage 60 60 Right Abdomen 60 60 Urine 250 575 Estimated Blood Loss 25 Other: Voiding Method Toilet Toilet Urinal Urinal # Voids 1 2 - Labs CBC & Chem 7: 03/06/23 09:01 03/06/23 09:01 Labs: Abnormal Lab Results - Last 24 Hours (Table) 03/06/23 03/06/23 Range/Units 09:01 09:01 Plt Count 128 L (150-450) k/uL Neutrophils # 9.5 H (1.3-7.7) k/uL Lymphocytes # 0.4 L (1.0-4.8) k/uL Sodium 136 L (137-145) mmol/L Glucose 156 H (74-99) mg/dL Calcium 8.2 L (8.4-10.2) mg/dL Microbiology - Last 24 Hours (Table) 03/04/23 20:20 Blood Culture - Preliminary Blood
--- NOTE | 2023-03-06 15:50 | P.PN ---
Subjective Progress Note Date: 03/06/23 - History of Present Illness This is a 67-year-old gentleman with past medical history significant for obesity, hyperlipidemia, vaper, marijuana use, he ambulated medical issues pre sented to ER with epigastric abdominal pain radiating to right upper quadrant since yesterday morning accompanied by cold sweats, nausea. Abdomin/pelvis CT reported findings most consistent with acute cholecystitis with a 1.1 cm gallstone within the gallbladder neck and surrounding inflammatory changes with wall thickening, colonic diverticulosis without evidence for acute diverticulitis. Patient is hypertensive with IV fluids running at 130 mL's an hour which have been decreased. Afebrile, T-max 99.9, WBC 18.8. CRP 3.3. Hemoglobin 16.4, platelets 129. Electrolytes, renal function stable. T bili 1.9. UA reporting moderate mucus, 127 WBCs, large leukocytes, positive nitrates. Maintained on Zosyn. 03/06/2023 status post laparoscopic cholecystectomy. Gangrenous gallbladder reported. Maintained on IV antibiotics of Zosyn further adjusted to Levaquin. Afebrile, normal WBC. Blood pressure better controlled. Renal function stable. Hemoglobin 13.9, platelets 128. Complains of abdominal pain, bloating, minimal flatus, minimal appetite. Denies nausea or vomiting. Minimal ambulation. Denies chest pain, palpitations or shortness of breath. Maintaining O2 sats in the 90s on room air. Objective - Vital Signs Vital signs: Vital Signs Temp 97.8 F 03/06/23 08:00 Pulse 84 03/06/23 08:00 Resp 16 03/06/23 08:00 BP 134/83 03/06/23 08:00 Pulse Ox 93 L 03/06/23 08:00 FiO2 Intake & Output 03/05/23 03/06/23 03/06/23 18:59 06:59 18:59 Intake Total 950 Output Total 335 635 Balance 615 -635 Intake: IV 950 Output: Drainage 60 60 Right Abdomen 60 60 Urine 250 575 Estimated Blood Loss 25 Other: Voiding Method Toilet Toilet Urinal Urinal # Voids 1 2 - Exam PHYSICAL EXAM: VITAL SIGNS: [As above] GENERAL: Sitting up in bed, no acute distress HEENT: Normocephalic,Conjunctivae normal. eyes normal. NECK: Supple, No JVD. CARDIOVASCULAR: S1, S2 regular. No murmur RESPIRATION: Unlabored, equal air entry.Breath sounds diminished in the bases. ABDOMEN: Soft, bloated , status post surgery, diffuse tenderness. ALEJO with serosanguineous drainage .+BS. LEGS: No edema. no swelling PSYCHIATRY: Alert and oriented X3, mood and affect normal. NERVOUS SYSTEM: Cranial N 2-12 grossly normal. No focal deficits. Strength and sensation grossly intact. Skin: Warm and dry, no rash. - Labs CBC & Chem 7: 03/06/23 09:01 03/06/23 09:01 Labs: Abnormal Lab Results - Last 24 Hours (Table) 03/06/23 03/06/23 Range/Units 09: 09:01 Plt Count 128 L (150-450) k/uL Neutrophils # 9.5 H (1.3-7.7) k/uL Lymphocytes # 0.4 L (1.0-4.8) k/uL Sodium 136 L (137-145) mmol/L Glucose 156 H (74-99) mg/dL Calcium 8.2 L (8.4-10.2) mg/dL Microbiology - Last 24 Hours (Table) 03/04/23 20:20 Blood Culture - Preliminary Blood Assessment and Plan Assessment: Acute cholecystitis Hypertension Acute UTI, culture pending Obesity, BMI 28 Vapes, marijuana use. Plan: Continue on current medication regime ,monitoring and symptomatic treatment. Pain management as per primary. IV fluid hydration, antibiotics. Simethicone added to med regimen for bloating. Encouraged to increase ambulation as tolerated. Aggressive pulmonary toileting with incentive spirometer ordered. The impression and plan of care has been dictated as directed. : I performed a history and examination of this patient, discussed the same with the dictator. I agree with the dictator's note ,documented as a scribe. Any additional findings or plans will be noted.
[2023-03-06] MEDS: SIMETHICONE 80 MG CHEWABLE PO SCH ×2 (17:33→22:13)
[2023-03-06] MEDS: FAMOTIDINE 20 MG TAB PO SCH (22:13)
[2023-03-07] MEDS: SODIUM CHLORIDE 0.9% 1,000 ML IV SCH ×3 (02:14→18:51)
[2023-03-07] MEDS: PIPERACILLIN-TAZOBACTAM 3.375 GM in SODIUM CHLORIDE 0.9% 100 ML IVPB SCH ×3 (04:43→20:45)
[2023-03-07] MEDS: KETOROLAC 15 MG/ML 1 ML VIAL IVP SCH ×4 (04:43→20:46)
[2023-03-07 07:55] LABS: Basophils % (A) 0 %; Eosinophils # (A) 0.1 k/uL (0-0.7); Eosinophils % (A) 1 %; HCT 37.8 % (39.0-53.0); HGB 12.5 gm/dL (13.0-17.5); Lymphocytes # (A) 0.5 k/uL (1.0-4.8); Lymphocytes % (A) 6 %; MCH 30.8 pg (25.0-35.0); MCV 93.3 fL (80.0-100.0); Mean Platelet Volume 7.9; Monocytes # (A) 0.4 k/uL (0-1.0); Monocytes % (A) 5 %; Neutrophils # (A) 6.9 k/uL (1.3-7.7); Neutrophils % (A) 86 %; Platelet Count 129 k/uL (150-450); RBC 4.05 m/uL (4.30-5.90)
[2023-03-07 08:23] LABS: African American GFR (CKD) >90 (>60 ml/min/1.73 sqM); Anion Gap 7 mmol/L; Blood Urea Nitrogen 21 mg/dL (9-20); Calcium 7.8 mg/dL (8.4-10.2); Carbon Dioxide 24 mmol/L (22-30); Chloride 106 mmol/L (98-107); Glucose 110 mg/dL (74-99); Non-African American GFR(CKD) >90 (>60 ml/min/1.73 sqM); Potassium 3.5 mmol/L (3.5-5.1); Sodium 137 mmol/L (137-145)
[2023-03-07] MEDS: ENOXAPARIN 40 MG/0.4 ML SYRINGE SQ SCH (09:01)
[2023-03-07] MEDS: FAMOTIDINE 20 MG TAB PO SCH ×2 (09:01→20:46)
[2023-03-07] MEDS: SIMETHICONE 80 MG CHEWABLE PO SCH ×3 (09:12→20:45)
[2023-03-07 09:28] VITALS: RESP 18
--- NOTE | 2023-03-07 14:08 | P.PN ---
Progress Note - Text Progress Note Date: 03/07/23 ASSESSMENT: 1. Acute gangrenous cholecystitis status post laparoscopic cholecystectomy PLAN: -IV Toradol and [place] for pain -Encourage patient to ambulate -Encourage patient to use incentive spirometer -Continue antibiotics -Possible discharge tomorrow -ALEJO drain to be removed prior to discharge HPI: Still having some pain and discomfort. Tolerating diet PHYSICAL EXAM: VITAL SIGNS: Reviewed. GENERAL: Well-developed in no acute distress. ABDOMEN: Soft. Distended. Tenderness at incision sites. Incision sites clean dry and intact. ALEJO drain on the right with serosanguineous output NEUROLOGIC: Alert and oriented. Cranial nerves II through XII grossly intact.
--- NOTE | 2023-03-07 17:11 | XR ---
EXAMINATION TYPE: XR abdomen complete w decub DATE OF EXAM: 03/07/2023 COMPARISON: NONE HISTORY: Postop cholecystectomy 2 days prior. Abdominal distention TECHNIQUE: 2 supine , upright, and right side down lateral decubitus views of the abdomen are obtain ed. FINDINGS: There is no evidence for pneumoperitoneum. There is a surgical drain in place. The bowel gas pattern is unremarkable as there is air throughout nondilated small and large bowel. No sizeable air fluid levels. No mass effects are seen. No unusual calcifications. IMPRESSION: Unremarkable study
--- NOTE | 2023-03-07 18:05 | PN ---
PROGRESS NOTE DATE OF SERVICE: 03/07/2023 SUBJECTIVE: This is a 67-year-old gentleman, admitted after laparoscopic cholecystectomy for acute gangrenous cholecystitis, improved significantly. No chest pain. No palpitations. No fever. PHYSICAL EXAMINATION: VITAL SIGNS: Pulse 74, blood pressure 152/80, respirations 18. CHEST: Few scattered rhonchi. ABDOMEN: Soft, status post surgery. EXTREMITIES: No edema. NERVOUS SYSTEM: Nonfocal. LABORATORY DATA: Reviewed. ASSESSMENT: 1. Acute gangrenous cholecystitis, status post laparoscopic cholecystectomy. 2. Acute urinary tract infection. 3. Hypertension. 4. Multiple medical issues. RECOMMENDATIONS: Recommend to continue current management. Continue symptomatic treatment. I would recommend repeat labs. Incentive spirometry, DVT prophylaxis. Further recommendations to follow. MMODL / IJN: [id number] /
[2023-03-08] MEDS: PIPERACILLIN-TAZOBACTAM 3.375 GM in SODIUM CHLORIDE 0.9% 100 ML IVPB SCH (03:10)
[2023-03-08] MEDS: KETOROLAC 15 MG/ML 1 ML VIAL IVP SCH ×2 (03:14→09:07)
[2023-03-08] MEDS: SODIUM CHLORIDE 0.9% 1,000 ML IV SCH ×2 (03:17→13:17)
[2023-03-08 07:41] LABS: Basophils % (A) 0 %; Eosinophils # (A) 0.2 k/uL (0-0.7); Eosinophils % (A) 4 %; HCT 38.1 % (39.0-53.0); HGB 12.5 gm/dL (13.0-17.5); Lymphocytes # (A) 0.5 k/uL (1.0-4.8); Lymphocytes % (A) 8 %; MCH 30.6 pg (25.0-35.0); MCHC 32.8 g/dL (31.0-37.0); MCV 93.3 fL (80.0-100.0); Mean Platelet Volume 7.8; Monocytes # (A) 0.4 k/uL (0-1.0); Monocytes % (A) 7 %; Neutrophils # (A) 4.8 k/uL (1.3-7.7); Neutrophils % (A) 80 %; Platelet Count 153 k/uL (150-450); RBC 4.08 m/uL (4.30-5.90)
[2023-03-08 07:52] LABS: African American GFR (CKD) >90 (>60 ml/min/1.73 sqM); Anion Gap 6 mmol/L; Blood Urea Nitrogen 20 mg/dL (9-20); Calcium 7.8 mg/dL (8.4-10.2); Carbon Dioxide 25 mmol/L (22-30); Chloride 107 mmol/L (98-107); Glucose 113 mg/dL (74-99); Non-African American GFR(CKD) 88 (>60 ml/min/1.73 sqM); Potassium 3.4 mmol/L (3.5-5.1); Sodium 138 mmol/L (137-145)
[2023-03-08] MEDS: ENOXAPARIN 40 MG/0.4 ML SYRINGE SQ SCH (09:06)
[2023-03-08] MEDS: FAMOTIDINE 20 MG TAB PO SCH (09:06)
[2023-03-08] MEDS: SIMETHICONE 80 MG CHEWABLE PO SCH (09:07)
--- NOTE | 2023-03-08 09:31 | P.DS ---
Providers Date of admission: 03/04/23 19:48 Expected date of discharge: 03/08/23 Attending physician: Cortes Mccann Consults: 03/04/23 21:39 Consult Physician Routine Consulting Provider: Miguel A Moon Consult Reason/Comments: medical Do you want consulting provider notified?: Yes, Notify in am Primary care physician: [facility] Course: This is a 67-year-old male [facility] with acute cholecystitis. Patient underwent laparoscopic ostectomy for acute gangrenous cholecystitis. Patient did well postoperatively. Pertinent Studies: Laparoscopic cholecystectomy Patient Condition at Discharge: Fair Plan - Discharge Summary Discharge Rx Participant: Yes New Discharge Prescriptions: New oxyCODONE HCL [OxyIR] 5 mg PO Q6H PRN 3 Days #12 tab PRN Reason: Pain oxyCODONE HCL [OxyIR] 5 mg PO Q6H PRN 3 Days #8 tab PRN Reason: Pain Ibuprofen [Motrin] 600 mg PO Q8HR PRN #30 tab PRN Reason: Pain Acetaminophen Tab [Tylenol Tab] 650 mg PO Q4H PRN #30 tablet PRN Reason: Pain metroNIDAZOLE [Flagyl] 500 mg PO TID 10 Days #30 tab Levofloxacin [Levaquin] 500 mg PO DAILY 10 Days #10 tab Continue Atorvastatin [Lipitor] 40 mg PO HS Discharge Medication List Atorvastatin [Lipitor] 40 mg PO HS 09/15/22 [History] Acetaminophen Tab [Tylenol Tab] 650 mg PO Q4H PRN #30 tablet 03/06/23 [Rx] Ibuprofen [Motrin] 600 mg PO Q8HR PRN #30 tab 03/06/23 [Rx] Levofloxacin [Levaquin] 500 mg PO DAILY 10 Days #10 tab 03/06/23 [Rx] metroNIDAZOLE [Flagyl] 500 mg PO TID 10 Days #30 tab 03/06/23 [Rx] oxyCODONE HCL [OxyIR] 5 mg PO Q6H PRN 3 Days #12 tab 03/06/23 [Rx] oxyCODONE HCL [OxyIR] 5 mg PO Q6H PRN 3 Days #8 tab 03/08/23 [Rx] Follow up Appointment(s)/Referral(s): Miguel A Moon MD [STAFF PHYSICIAN] - 1 Week Cortes Mccann MD [STAFF PHYSICIAN] - 1 Week Activity/Diet/Wound Care/Special Instructions: No driving while taking OxyIr No lifting over 10 pounds Shower daily. No soaking or tub baths for 2 weeks Very light activity until you are reevaluated at your follow up appointment with your surgeon Discharge Disposition: HOME SELF-CARE
[2023-03-08] MEDS ORDERED: POTASSIUM CHLORIDE ER 20 MEQ TAB.ER PO STA (10:44)
[2023-03-08 11:02] VITALS: BP 169/84; PULSE 63; TEMP 98
--- NOTE | 2023-03-08 15:23 | PN ---
PROGRESS NOTE DATE OF SERVICE: 03/08/2023 SUBJECTIVE: This is a 67-year-old gentleman, who was admitted with acute gangrenous cholecystitis, had surgery. The patient also had a UTI. No chest pain. No palpitations. No fever. OBJECTIVE: VITAL SIGNS: Pulse is 63, blood pressure 116/84, respirations 18. CHEST: Clear to auscultation. CARDIOVASCULAR: S1, S2. ABDOMEN: Soft, status post surgery. LABORATORY DATA: Reviewed. ASSESSMENT: 1. Acute gangrenous cholecystitis, status post laparoscopic cholecystectomy. 2. Acute urinary tract infection. 3. Hypertension. 4. Multiple medical issues. RECOMMENDATIONS: Recommended to continue current management and symptomatic treatment. I would recommend resume the home medications. Follow up with the primary physician with labs. Rest of the recommendations per Surgery. MMODL / IJN: [id number] /
== END 2023-03-08 13:19 | disposition home or self-care (01) | DRG 418 ==
LOC: EC 17:58 → 4SSUR 19:48
PROVIDERS: ADMIT Surgery; ATTEND Surgery
PROC: 0FT44ZZ Resection of Gallbladder, Percutaneous Endoscopic Approach (ICD-10-PCS; principal; 2023-03-05 09:45)
DX: K80.00 Calculus of gallbladder with acute cholecystitis without obstruction (principal); N39.0 Urinary tract infection, site not specified; K82.A1 Gangrene of gallbladder in cholecystitis; E66.9 Obesity, unspecified; E78.5 Hyperlipidemia, unspecified; I10 Essential (primary) hypertension; K57.30 Diverticulosis of large intestine without perforation or abscess without bleeding; Z68.28 Body mass index [BMI] 28.0-28.9, adult; F17.290 Nicotine dependence, other tobacco product, uncomplicated; F12.90 Cannabis use, unspecified, uncomplicated; Z79.899 Other long term (current) drug therapy
CPT/HCPCS: 36415; 74021; 74176; 80048; 80053; 81001; 82150; 83690; 85025; 86140; 87040; 87086; 88304; 94760; 96365; 96375; 99285

== ENCOUNTER → 2023-03-11 | Outpatient (CLI) | payer MEDICARE ==
[2023-03-11 15:47] LABS: HCT 42.2 % (39.6-50.0); HGB 13.6 d/dL (13.0-17.0); MCH 29.5 pg (27.0-32.0); MCHC 32.2 d/dL (32.0-37.0); MCV 91.5 FL (80.0-97.0); Mean Platelet Volume 10.3 FL (9.5-12.2); NRBC Per 100 WBC 0 X 10*3/uL (0.00-0.01); Platelet Count 234 X 10*3/uL (140-440); RBC 4.61 X 10*6/uL (4.40-5.60); RDW 11.9 % (11.5-14.5); WBC 7.75 X 10*3/uL (4.50-10.00)
[2023-03-11 16:00] LABS: Blood Urea Nitrogen 18.5 mg/dL (9.0-27.0); Calcium 8.7 mg/dL (8.7-10.3); Carbon Dioxide 26.5 mmol/L (21.6-31.8); Chloride 102 mmol/L (96-109); Glucose 123 mg/dL (70-110); Potassium 4.4 mmol/L (3.5-5.5); Sodium 138 mmol/L (135-145)
== END | disposition home or self-care (01) ==
LOC: LABWHC1 12:09
PROVIDERS: ATTEND Family Medicine
DX: K81.0 Acute cholecystitis (principal)
CPT/HCPCS: 36415; 80048; 85027

== ENCOUNTER 2023-03-23 11:44 | Emergency (ER) | payer MEDICARE ==
--- NOTE | 2023-03-23 14:23 | US ---
EXAMINATION TYPE: US venous doppler duplex LE RT DATE OF EXAM: 03/23/2023 2:00 PM COMPARISON: NONE CLINICAL INDICATION: Male, 67 years old with history of pain; Pain rt leg SIDE PERFORMED: Right TECHNIQUE: The lower extremity deep venous system is examined utilizing real time linear array sonog nallely with graded compression, doppler sonography and color-flow sonography. VESSELS IMAGED: Common Femoral Vein Deep Femoral Vein Greater Saphenous Vein * Femoral Vein Popliteal Vein Small Saphenous Vein * Proximal Calf Veins (* superficial vessels) Right Leg: Positive for DVT throughout the right lower extremity from the common femoral vein to the calf veins with thrombus and noncompressibility identified. Left Leg: Positive for DVT in Common Femoral Vein with thrombus identified. IMPRESSION: Positive deep venous thrombosis throughout the right lower extremity. Additionally there is positive deep venous thrombosis of the left common femoral vein. Findings called to and discussed with ER at 2:20 PM on 03/23/2023.
[2023-03-23 14:40] VITALS: PULSE 99; TEMP 98.5
--- NOTE | 2023-03-23 14:40 | ED ---
General Adult HPI - General Chief complaint: Extremity Problem,Nontraumatic Stated complaint: right leg pain Time Seen by Provider: 03/23/23 12:36 Source: patient Mode of arrival: ambulatory Limitations: no limitations - History of Present Illness Initial comments: 67-year-old male with past medical history significant for cholecystectomy 03/04/2023 presents to the emergency department with a chief complaint of right leg pain. Patient reports that he had upper thigh pain that has radiated down to his right lower leg that started last night. It is worse in the chair. It feels better with elevation. He hasn't tried anything at home for pain. He denies any chest pain, shortness of breath, nausea, dizziness lightheadedness. Patient denies anticoagulant use. - Related Data Home Medications Medication Instructions Recorded Confirmed Atorvastatin [Lipitor] 40 mg PO HS 09/15/22 03/04/23 Previous Rx's Medication Instructions Recorded Acetaminophen Tab [Tylenol Tab] 650 mg PO Q4H PRN #30 tablet 03/06/23 Ibuprofen [Motrin] 600 mg PO Q8HR PRN #30 tab 03/06/23 Levofloxacin [Levaquin] 500 mg PO DAILY 10 Days #10 tab 03/06/23 metroNIDAZOLE [Flagyl] 500 mg PO TID 10 Days #30 tab 03/06/23 oxyCODONE HCL [OxyIR] 5 mg PO Q6H PRN 3 Days #12 tab 03/06/23 oxyCODONE HCL [OxyIR] 5 mg PO Q6H PRN 3 Days #8 tab 03/08/23 Apixaban [Eliquis] 0 mg PO DIRECTED 30 Days #74 03/23/23 tablet Allergies Allergy/AdvReac Type Severity Reaction Status Date / Time No Known Allergies Allergy Verified 03/23/23 11:57 Review of Systems ROS Statement: Those systems with pertinent positive or pertinent negative responses have been documented in the HPI. ROS Other: All systems not noted in ROS Statement are negative. Past Medical History Past Medical History: Hyperlipidemia History of Any Multi-Drug Resistant Organisms: None Reported Additional Past Surgical History / Comment(s): urethroplasty Additional Past Anesthesia/Blood Transfusion Reaction / Comment(s): no transfusion history Past Psychological History: No Psychological Hx Reported Smoking Status: Vaper Past Alcohol Use History: None Reported Past Drug Use History: Marijuana General Exam - General Exam Comments Initial Comments: General: Alert, in no acute distress Head: atraumatic normocephalic. Eyes PERRL, EOMI intact, mucous membranes moist Respiratory: Lungs clear to auscultation bilaterally Cardiovascular: Heart rate regular rate and rhythm Abdominal: Soft without guarding or rebound Extremities: Normal inspection with full range of motion and normal capillary refill, right leg with positive Homans sign. 2+ DP/PT pulses. Distal neurovascularly intact. Neuroogic: alert and oriented 3, CN II-XII intact, able to ambulate with steady gait Skin: warm dry and intact with normal color Limitations: no limitations Course Vital Signs 03/23/23 03/23/23 11:55 14:22 Temperature 98.1 F 98.5 F Pulse Rate 111 H 99 Respiratory 20 18 Rate Blood Pressure 132/84 138/84 O2 Sat by Pulse 96 98 Oximetry Medical Decision Making - Medical Decision Making Was pt. sent in by a medical professional or institution (, PA, WELLNESS SPECIALIST, urgent care, hospital, or usp...) When possible be specific @ -[No] Did you speak to anyone other than the patient for history (EMS, parent, family, police, friend...)? What history was obtained from this source @ -[No] Did you review nursing and triage notes (agree or disagree)? Why? @ -[I reviewed and agree with nursing and triage notes] Were old charts reviewed (outside hosp., previous admission, EMS record, old EKG, old radiological studies, urgent care reports/EKG's, usp records)? Report findings @ -[No old charts were reviewed] Differential Diagnosis (chest pain, altered mental status, abdominal pain women, abdominal pain men, vaginal bleeding, weakness, fever, dyspnea, syncope, headache, dizziness, GI bleed, back pain, seizure, CVA, palpatations, mental health, musculoskeletal)? @ -[not applicable] EKG interpreted by me (3pts min.). @ -[As above] X-rays interpreted by me (1pt min.). @ -[None done] CT interpreted by me (1pt min.). @ -[None done] U/S interpreted by me (1pt. min.). @ -Yes What testing was considered but not performed or refused? (CT, X-rays, U/S, labs)? Why? @ -[None] What meds were considered but not given or refused? Why? @ -[None] Did you discuss the management of the patient with other professionals (professionals i.e. , PA, WELLNESS SPECIALIST, lab, RT, psych nurse, renal social worker, manager dish, teacher, tactical/mobile watch officer, case planner)? Give summary @ -[No] Was smoking cessation discussed for >3mins.? @ -[No] Was critical care preformed (if so, how long)? @ -[No] Were there social determinants of health that impacted care today? How? (Homelessness, low income, unemployed, alcoholism, drug addiction, transportation, low edu. Level, literacy, decrease access to med. care, group home, rehab)? @ -[No] Was there de-escalation of care discussed even if they declined (Discuss DNR or withdrawal of care, Hospice)? DNR status @ -[No] What co-morbidities impacted this encounter? (DM, HTN, Smoking, COPD, CAD, Cancer, CVA, ARF, Chemo, Hep., AIDS, mental health diagnosis, sleep apnea, morbid obesity)? @ -[None] Was patient admitted / discharged? Hospital course, mention meds given and route, prescriptions, significant lab abnormalities, going to OR and other pertinent info. @ -Discharged. This is a pleasant 67-year-old male with past medical history significant for recent cholecystectomy presents the emergency department with right leg pain. Patient had thorough history and physical exam performed. Right leg without market swelling, erythema. Homans sign positive. 2+DP /PT pulses bilaterally. Vital signs stable. I interpreted the following: US right lower extremity positive for DVT in the Common Femoral Vein I discussed the results with the patient. He will be started on Eiquis. Strict return parameters were discussed with the Patient who was understanding and all questions addressed. He is agreeable with the plan for discharge home. Patient provided prescription for Eliquis. Recommend close follow-up with Dr. Parks case discussed with NARCISA Pinto who agrees with plan of care. Undiagnosed new problem with uncertain prognosis? @ -[No] Drug Therapy requiring intensive monitoring for toxicity (Heparin, Nitro, Insulin, Cardizem)? @ -[No] Were any procedures done? @ -[No] Diagnosis/symptom? @ -DVT of Right Common Femoral Vein Acute, or Chronic, or Acute on Chronic? @ -Acute Uncomplicated (without systemic symptoms) or Complicated (systemic symptoms)? @ -Uncomplicated Side effects of treatment? @ -[No] Exacerbation, Progression, or Severe Exacerbation? @ -[No] Poses a threat to life or bodily function? How? (Chest pain, [place], [place], pneumonia, PE, COPD, DKA, ARF, appy, cholecystitis, CVA, Diverticulitis, Homicidal, Suicidal, threat to staff... and all critical care pts) @ -Low likelihood Disposition Clinical Impression: Deep vein thrombosis (DVT) of lower extremity Disposition: HOME SELF-CARE Condition: Good Instructions (If sedation given, give patient instructions): Apixaban (By mouth), Deep Vein Thrombosis (ED), Deep Vein Thrombosis Prevention (ED) Additional Instructions: Please take a look bicep as prescribed Please return to the nearest emergency department if worsening right lower leg pain or shortness of breath develop Results with Dr. Parks within 1 week Prescriptions: Apixaban [Eliquis] 0 mg PO DIRECTED 30 Days #74 tablet Is patient prescribed a controlled substance at d/c from ED?: No Referrals: [facility] [Primary Care Provider] - 1-2 days Sourav Parks DO [Doctor of Osteopathic Medicine] - 1-2 days Time of Disposition: 14:53
[2023-03-23] MEDS ORDERED: APIXABAN 5 MG TAB PO STA (15:05)
[2023-03-23 15:21] VITALS: BP 130/82; RESP 20
[2023-03-23] MEDS ORDERED: APIXABAN 5 MG TAB PO SCH (21:00)
== END 2023-03-23 15:18 | disposition home or self-care (01) ==
LOC: EC 11:44
DX: I82.411 Acute embolism and thrombosis of right femoral vein (principal); E78.5 Hyperlipidemia, unspecified; F17.290 Nicotine dependence, other tobacco product, uncomplicated; F12.90 Cannabis use, unspecified, uncomplicated; Z79.899 Other long term (current) drug therapy
CPT/HCPCS: 99284

== ENCOUNTER → 2024-03-17 | Day surgery (SDC) | payer MEDICARE ==
[~2024-03-17] MED LIST: PROPOFOL 10 MG/ML 20 ML VIAL IV ONE
[2024-03-17] MEDS: IV FLUID CONTINUATION 1,000 ML IV ONE (08:26)
[2024-03-17 08:34] VITALS: TEMP 97.3
[2024-03-17] MEDS: LACTATED RINGERS 1,000 ML IV SCH (08:41)
--- NOTE | 2024-03-17 08:47 | P.GSHP ---
History of Present Illness H&P Date: 03/17/24 Chief Complaint: History of colon polyps Is a 68-year-old male who presents today for colonoscopy. Patient's previous history of colon polyps. Past Medical History Past Medical History: Deep Vein Thrombosis (DVT), Hyperlipidemia, Osteoarthritis (OA) Additional Past Medical History / Comment(s): DVT - Rt. thigh & Lt. thigh post cholecystectomy 03/23, Rt. knee arthritis History of Any Multi-Drug Resistant Organisms: None Reported Past Surgical History: Cholecystectomy Additional Past Surgical History / Comment(s): urethroplasty Past Anesthesia/Blood Transfusion Reactions: No Reported Reaction Additional Past Anesthesia/Blood Transfusion Reaction / Comment(s): no transfusion history Smoking Status: Former smoker, Vaper - Past Family History Father Family Medical History: Cancer Additional Family Medical History / Comment(s): lymphoma Sister(s) Family Medical History: Cancer Additional Family Medical History / Comment(s): 1 sister breast cancer. 1 sister lymphoma Medications and Allergies Home Medications Medication Instructions Recorded Confirmed Type Atorvastatin [Lipitor] 40 mg PO HS 09/15/22 03/17/24 History Apixaban [Eliquis] 5 mg PO BID 03/14/24 03/17/24 History Allergies Allergy/AdvReac Type Severity Reaction Status Date / Time No Known Allergies Allergy Verified 03/17/24 08:28 Surgical - Exam Vital Signs Temp Pulse Resp BP Pulse Ox 97.3 F L 83 18 132/89 96 03/17/24 08:33 03/17/24 08:33 03/17/24 08:33 03/17/24 08:33 03/17/24 08:33 - General well developed, well nourished, no distress - Eyes PERRL - ENT normal pinna - Neck no masses - Respiratory normal expansion - Cardiovascular Rhythm: regular - Abdomen Abdomen: soft, non tender Assessment and Plan Assessment: History of colon polyps. Will perform colonoscopy.
--- NOTE | 2024-03-17 08:57 | P.OP ---
Date of Procedure: 03/17/24 Preoperative Diagnosis: History of colon polyps Postoperative Diagnosis: Diverticulosis Procedure(s) Performed: Colonoscopy Anesthesia: MAC Surgeon: Cortes Mccann Pathology: none sent Condition: stable Disposition: PACU Description of Procedure: The patient was placed on the endoscopy table in the lateral position. He received IV sedation. Digital rectal exams performed. This revealed no abnormalities. The flexible colonoscope was then placed patient anus and passed throughout the entire colon. The ileocecal valve was visualized. The cecum, ascending and transverse colon appeared normal. The descending and sigmoid colon had moderate diverticulosis. Scope was gerd back the rectum this appeared normal. Scope withdrawn for the patient.
[2024-03-17 09:18] VITALS: BP 111/74; PULSE 80; RESP 14
== END | disposition home or self-care (01) ==
LOC: ORWHC2ENDO 07:58
PROVIDERS: ATTEND Surgery
CPT/HCPCS: 45378